=== PATIENT | female | born 1950 | race Caucasian/White ===

== ENCOUNTER 2021-09-08 01:41 | Day surgery (SDC) | payer MEDICARE, BC, SELFPAY ==
[2021-08-30 15:41] VITALS: BMI 26.1
--- NOTE | 2021-08-30 16:06 | PC.NURSE ---
Report to the Outpatient Waiting Room, entrance under the green pavilion located off [facility], at time _1000_ on date _09/08/21_. OR Time: _1200_. - You will be asked a series of questions to screen for COVID 19 for your protection. - A mask is required within the hospital. - ONE visitor allowed at this time. Preoperative COVID Testing Requirements: NONE Patients may have clear liquids (water, carbonated beverages, clear teas, apple juice) until 3 hours prior to surgery (0900 AM) with a maximum of 20 ounces. - No food from midnight until time of surgery Take the following medications with a SIP of water the morning of surgery: _AMLODIPINE__ Medications to discontinue per ANESTHESIA - _ALL VITAMINS AND SUPPLEMENTS 3 DAYS PRIOR TO SURGERY, LAST DOSE TO BE TAKEN ON 09/04/21__ Please no make-up, nail japanese, hairspray, perfume, deodorant, or body powder the day of surgery. No jewelry (including any body piercings) or valuables the day of surgery, leave them at home. Please take a shower or bath the night before, or the morning of, surgery with an antibacterial soap. Wear comfortable, loose fitting clothing. - Jewelry must be removed prior to entering the operating room. Rings and piercings that are not removed may be cut off. - The hospital will not accept responsibility for valuables. - Please leave all valuables, including medications, at home the day of surgery. If you are going home after surgery, a licensed helper driver must drive you home. - NO public transportation without another adult. - We recommend that an adult stay with you for 24 hours following discharge. - We also recommend that you do not drive, make important decision, drink alcoholic beverages, or take any drugs that were not prescribed by your health care provider for at least 24 hours after your discharge time. Follow any additional instructions given to you from your surgeon. IVON SHOWER AM OF SURGERY Instructions given to ___PT and asked if any additional questions and then verbalized understanding. Patient advised to call surgeon office or pre surgery nurse liaison [phone] if any additional questions.
[2021-09-08] VITALS (8 sets, daily range): BP systolic 109–154; BP diastolic 45–69; PULSE 46–66; RESP 12–20; TEMP 36.2–36.6; O2SAT 97–100; BMI 26.9
--- NOTE | 2021-09-08 07:39 | WPDHPUPDATE1 ---
History and Physical Update Update Date/Time: 09/08/21 07:39 History and Physical has been reviewed, including an updated exam of the patient. There are NO changes in the patient's condition. Risks, benefits, and alternatives have been discussed and questions answered. Patient agrees to proceed with procedure.
--- NOTE | 2021-09-08 08:15 | SUR.PREOP ---
0800; PT VERY ANXIOUS AND TEARFUL. PT COMFORTED AND GIVEN REASSURANCE. SPOUSE AT BEDSIDE
--- NOTE | 2021-09-08 08:19 | WPDANESEPPF ---
Anes - Initial Pre Proc Eval Procedure: Operation Date: 09/08/21 09:30 Proposed Procedures p Laparoscopic Cholecystectomy, Possible Open Cholecystectomy - Ramu Andres DO Date/Time: 09/08/21 08:19 Surgeon: Ramu Andres DO Pre Op Diagnosis: biliary dyskinesia Patient Data Age: 71 Gender: F Height: 1.6 m Weight: 69 kg Last Vital Signs Temp 36.6 C 09/08/21 07:40 Pulse 60 09/08/21 07:40 Resp 20 09/08/21 07:40 BP 154/67 H 09/08/21 07:40 Pulse Ox 100 09/08/21 07:40 Allergies Allergy/AdvReac Type Severity Reaction Status Date / Time cephalexin AdvReac Diarrhea Verified 09/08/21 07:33 ciprofloxacin [From Cipro] AdvReac Diarrhea Verified 09/08/21 07:33 fluticasone AdvReac Nausea Verified 09/08/21 07:33 lisinopril AdvReac Cough Verified 09/08/21 07:33 losartan AdvReac Dizziness Verified 09/08/21 07:33 Home Medications Medication Instructions Recorded Confirmed Type ascorbic acid (vitamin C) 100 mg 50 mg PO DAILY 08/11/21 09/08/21 History tablet aspirin 81 mg capsule 81 mg PO DAILY 08/11/21 09/08/21 History cholecalciferol (vitamin D3) 50 50 mcg PO DAILY 08/11/21 09/08/21 History mcg (2,000 unit) capsule lovastatin 10 mg tablet 10 mg PO DAILY 08/11/21 09/08/21 History pantoprazole 40 mg tablet,delayed 40 mg PO QAM 08/11/21 09/08/21 History release triamterene 75 1 tablet PO DAILY 08/11/21 09/08/21 History mg-hydrochlorothiazide 50 mg tablet acetaminophen [Tylenol] 325 mg PO Q8H PRN 08/30/21 09/08/21 History amlodipine 5 mg PO HS 08/30/21 09/08/21 History Patient hx anesthesia problems: other (slow to awaken) Family hx anesthesia problems: none Results Review: All pre-operative results and documents have been reviewed as part of the pre-operative evaluation. [facility] Past Medical History Medical History Arthritis GERD (gastroesophageal reflux disease) High cholesterol History of gastric ulcer 1983 Hypertension Pulmonary scarring Surgical History Surgical History H/O cataract extraction History of hammertoe correction History of knee surgery History of laparoscopy History of surgery on wrist S/P trigger finger release Family History Family History Mother Heart disease Diabetes mellitus Hypertension Social History Social History Smoking status: Former smoker Tobacco type: cigarettes Second hand tobacco smoke exposure: No Additional smoking assessment comments: STATES 1-2PK/DAY/15YRS - QUIT 1985 Alcohol intake: current Drinks per week: 14 Substance use: never Substance use type: does not use Living arrangements: with family Spiritual care concerns: No Anes - Eval Final PreProcedure Day of Procedure 09/08/21 08:19 Patient weight: overweight Heart: regular rate and rhythm Lungs: decreased breath sounds Airway: Mallampati scale class II Last oral intake: >/= 8 hours ASA classification: III Emergent: no Anesthetic plan: proceed Anesthesia type and monitoring: general ETT and standard monitoring Results Review: All pre-operative results and documents have been reviewed as part of the pre-operative evaluation. Informed Consent: The patient's anesthetic plan and its attendant risks and benefits were discussed with the patient/family/POA. Questions were solicited and answers provided to the satisfaction of the patient/family/POA.
[2021-09-08] MEDS: LACTATED RINGERS 1,000 ML 30 ML IV CONT ×2 (08:51→11:32)
[2021-09-08] MEDS: KETOROLAC 15 MG/ML VIAL (*BKC) IV PUSH (08:52)
[2021-09-08] MEDS: ACETAMINOPHEN 500 MG TABLET 1000 MG PO (08:52)
[2021-09-08 09:06] LABS: Alanine Aminotransferase 24 U/L (4-35); Albumin Level 4.5 g/dL (3.5-5.1); Alkaline Phosphatase 117 U/L (38-126); Amylase 79 U/L (30-110); Aspartate Amino Transferase 38 U/L (14-36); Bilirubin,Total 0.6 mg/dL (0.2-1.3); Lipase 212 U/L (23-300); Sodium 131 mmol/L (137-145)
[2021-09-08] MEDS: ceFAZolin 2 GM/D5W 50 ML 2 GM/50 ML BAG IVPB (09:37)
[2021-09-08] MEDS: BUPIVACAINE/EPINEPHRINE 0.5% 30 ML VIAL INFILTRATE (10:23)
--- NOTE | 2021-09-08 10:30 | W.PM.PROC2 ---
Procedure Note - Detailed Date of Procedure 09/08/21 Pre-op Diagnosis biliary dyskinesia Post-op Diagnosis same Procedure Performed Laparoscopic Cholecystectomy Surgeon Ramu Andres, DO Anesthesia general and local (0.5% bupivacaine) Indications This is a 71-year-old woman presented with abdominal pain for the past 2 months. She was having intermittent abdominal pain after eating heavier meals. A gallbladder ultrasound was normal but HIDA scan showed gallbladder ejection fraction of 20%. Once she went to a low-fat diet she had much less symptoms. Discussions were made with the patient about treatment options and decision was made to proceed with laparoscopic cholecystectomy, possible open. Findings Laparoscopic cholecystectomy was performed. The gallbladder had normal general appearance but was slightly dilated. There were no gallstones within the gallbladder. The cystic duct appeared normal in size. The gallbladder is removed and sent to the lab for pathology. Description of Procedure Procedure as well as risks, benefits, and alternatives were discussed with patient. Written consent was obtained and placed in chart prior to procedure. The patient was brought back to surgical suite. Patient was placed in supine position on operating table. Time-out was done to confirm patient and procedure. Patient was then intubated by the anesthesia department. Abdomen was prepped and draped in sterile fashion using chlorhexidine prep. 0.5% bupivacaine with epinephrine was infiltrated at each site of incision. A 5 millimeter incision was made near the umbilicus, and a 5 millimeter Optiview trocar was advanced through the abdominal layers under direct visualization. Once inside the abdominal cavity, carbon dioxide was insufflated to create a pneumoperitoneum. The camera was inserted and the abdomen was inspected. No immediate abnormalities were identified. The patient was placed in reverse Trendelenburg position and rotated slightly to the left. An 11 millimeter incision was made in the subxiphoid region, and an 11 millimeter trocar was inserted under direct visualization. Two 5 millimeter incisions were made in the right upper quadrant, and two 5 millimeter trocars were inserted under direct visualization. The gallbladder was identified and grasped at the fundus and retracted superiorly. It was then grasped at the infundibulum retracted laterally. Careful dissection around the neck of the gallbladder was performed using blunt dissection with a [place] grasper and hook electrocautery. The cystic duct was identified, and a window was created behind it. The cystic artery was also identified and a window was created behind it. The critical view of safety was identified, visualizing the cystic duct running directly into the neck of the gallbladder, and the cystic artery running directly into the wall of the gallbladder. A 5 millimeter clip yard associate was then used to place 2 clips proximally and 1 clip distally on both the cystic duct and cystic artery. They were then both transected using endoscopic scissors. Once safely away from the luciana hepatitis, the gallbladder was dissected free from the liver bed using hook electrocautery. Hemostasis was achieved along the way. The gallbladder was removed completely and then removed through the subxiphoid port. The liver bed was then inspected. Hemostasis appeared adequate, and our clips appeared secure. The area was gently irrigated with sterile saline. No other abnormalities were seen. The patient was flattened out in bed, and 1 final inspection was made around the abdominal cavity. The subxiphoid port was removed, and a Nadir Britany cone was used to approximate the fascia with an 0-Vicryl simple interrupted suture. The remaining ports were then removed under direct visualization, the camera was removed, and the pneumoperitoneum was released. The skin of the incisions was approximated using 4-0 Monocryl sub
[2021-09-08] MEDS: oxyCODONE HCL (*CRX) 5 MG TAB IR PO (12:24)
== END 2021-09-08 12:38 | disposition home or self-care (01) ==
PROVIDERS: PCP Family Medicine; Visit Provider Surgery
PROC: 0FT44ZZ Resection of Gallbladder, Percutaneous Endoscopic Approach (ICD-10-PCS; CPT 47562; principal; 2021-09-08 09:30)
DX: K81.1 Chronic cholecystitis (principal); E78.00 Pure hypercholesterolemia, unspecified; I10 Essential (primary) hypertension; K21.9 Gastro-esophageal reflux disease without esophagitis; Z87.11 Personal history of peptic ulcer disease; Z79.82 Long term (current) use of aspirin; Z87.891 Personal history of nicotine dependence
CPT/HCPCS: 47562; 36415; 80076; 82150; 83690; 84295; 86850; 86900; 86901; 88304; A9270; J0690; J1100; J1170; J1885; J2405; J2704; J2710; J7030; J7120